=== PATIENT | female | born 1975 | race African-American/Black ===

== ENCOUNTER 2018-05-30 18:19 | Emergency (ER) | payer BC, OTHER ==
[~2018-05-30] VITALS: Ht 180.3 cm; Wt 123.8 kg
[~2018-05-30 18:19] MED LIST: ACETAMINOPHEN-1 EAC1 PO; AMOXICILLIN 50500 M1 PO; MONISTAT 324 GM VG; ZOFRAN4 MG PO
[2018-05-30 19:04] LABS: HEMATOCRIT 28.7 % (37.0-47.0); HEMOGLOBIN 8.7 gm/dL (12.0-15.0); MCHC 30.2 g/dL (28.0-37.0); MCV 59.5 fL (80.0-100.0); RBC 4.82 mil/uL (4.20-5.00); RDW 20.4 % (10.5-14.5); WBC 8.1 thou/uL (4.0-11.0)
[2018-05-30 19:14] LABS: ANION GAP 12 mmol/L (7-16); BUN 15 mg/dL (7-18); CALCIUM 8.4 mg/dL (8.5-10.1); CHLORIDE 103 mmol/L (98-107); CO2 24 mmol/L (21-32); CREATININE 0.7 mg/dL (0.6-1.0); GLUCOSE 97 mg/dL (74-106); POTASSIUM 4.1 mmol/L (3.5-5.1); SODIUM 139 mmol/L (136-145)
[2018-05-30 19:23] LABS: ALBUMIN 3.9 g/dL (3.4-5.0); SGOT 11 U/L (15-37); SGPT 14 U/L (30-65); TOTAL BILIRUBIN 0.2 mg/dL (<0.1-1.0); TOTAL PROTEIN 8.1 g/dL (6.4-8.2)
[2018-05-30 19:55] LABS: TROPONIN-I <0.06 ng/mL (<0.06)
[2018-05-30] MEDS ORDERED: HYDROCHLOROTHIA25 M1 PO (20:21)
[2018-05-30] MEDS ORDERED: BUTALB-APAP-CA1 EACH PO (20:21)
[2018-05-30 21:28] VITALS: BP 145/64
--- NOTE | 2018-05-31 11:31 | EKG ---
[place] [address] [facility] [place] [address] ELECTROCARDIOGRAM REPORT Name: IAN VILLANUEVAELEAZAR Molina Room #: [facility]#: [id number] ������������������ Admission: 05/30/18 ������������������ Attend Phys: Discharge: 05/30/18 ������������������ Date of : 79 Report #: [id number] ����������������������������������������������������������������� [id number] THIS REPORT FOR: //name// [facility] ED Test Date: 2018-05-30 Test Time: 19:09:24 Pat Name: BAYRON VILLANUEVA Department: Room: Gender: F Assessment Clinician: [place] : 1975 Requested By: Rufino Coleman Order Number: [id number] MD: Archie Zamorano Measurements Intervals [place] Rate: 72 P: 20 ND: 161 QRS: 1 QRSD: 91 T: 11 QT: 415 QTc: 455 Interpretive Statements Sinus rhythm Left ventricular hypertrophy Poor R-wave progression Baseline artifact noted Baseline wander in lead(s) V1,V2 No previous ECG available for comparison Electronically Signed On 05-31-2018 11:30:49 [employer] by Archie [email or web address] [email or web address] ��������������������������������������������� <ELECTRONICALLY SIGNED> ���������������������������������������� By: Archie Zamorano MD ��������������������������������������������� 05/31/18 1130 08 08 Archie Zamorano MD /EPI
== END 2018-05-30 21:29 | disposition home or self-care (01) ==
LOC: ER 18:19
PROVIDERS: Physician Assistant
DX: I10 Essential (primary) hypertension (principal); R07.9 Chest pain, unspecified; R51 Headache; F17.210 Nicotine dependence, cigarettes, uncomplicated